=== PATIENT | male | born 1995 | race African-American/Black ===

== ENCOUNTER 2018-08-25 22:10 | Emergency (ER) | payer BC ==
[2018-08-25 22:24] VITALS: BP 103/67; PULSE 60; TEMP 98; BMI 18.8
[2018-08-25] MEDS ORDERED: FAMOTIDINE 20 MG/50 ML IVPB 20 MG/50 ML MG IVPB ONE (23:43)
--- NOTE | 2018-08-25 23:48 | PDOC ---
Attending Attestation - Resident Resident Name: Katelynn Leblanc - ED Attending Attestation I have performed the following: I have examined & evaluated the patient, The case was reviewed & discussed with the resident, I agree w/resident's findings & plan, Exceptions are as noted - HPI HPI: 08/26/18 00:06 22y M no pmhx presents with 2 days of epigastric dicomfort, worse when he lies down. had gone to an ED and was given protonix with releif of sx for a brief period of time. Pain did seem to worsen after eating pizza yesterday. no prior similar pain in the past. pain seems worse when lying down denies any n/v, diarrhea, f/c denies regular use of nsaids, etoh abuse, spicy foods denies any cp, sob, diaphoresis, diarrhea, melena, bpr. +smokes occasional marijuana, no smoking or other recreational drug use - Physicial Exam PE: 08/26/18 02:07 GENERAL: The patient is awake, alert, and fully oriented, Nontoxic - in no acute distress. HEAD: Normocephalic, atraumatic. EYES: extraocular movements intact, sclera anicteric, conjunctiva clear. ENT: Normal voice, Moist mucous membranes. NECK: Normal range of motion, supple LUNGS: Breath sounds equal, clear to auscultation bilaterally. No wheezes, no rhonchi, no rales. HEART: Regular rate and rhythm, normal S1 and S2 without murmur, rub or gallop. ABDOMEN: Mild epigastric tenderness, no rebound or guarding EXTREMITIES: Normal range of motion, no edema. No clubbing or cyanosis. No cords, erythema, or tenderness. NEUROLOGICAL: No facial assymetry, Normal speech, PSYCH: Normal mood, normal affect. SKIN: Warm, Dry, normal turgor, - Medical Decision Making 08/26/18 02:07 The patient's lab work was reviewed it is unremarkable he is feeling improved will discharge patient with supportive care and GI follow -up
--- NOTE | 2018-08-25 23:51 | PDOC ---
History of Present Illness - General Chief Complaint: Pain Stated Complaint: STOMACH PAIN Time Seen by Provider: 08/25/18 23:26 History Source: Patient Exam Limitations: No Limitations - History of Present Illness Initial Comments: 08/25/18 23:48 22 y/o male with no PMH presents to the ED with ongoing epigastric pain. Patient states that the pain started two days ago while he was at rest. He has had similar stomach issues like this in the past. He states that he is not having any associated nausea/vomiting or diarrhea and has been having normal bowel movements as well, his last one being yesterdaty. The pain is worse when he is laying down so he has been trying to sit up as much as possible. He has had no relief from the pain so he came to the ER this morning and was sent home on what he thinks was zantac . He got relief for about one hour with the the zantac and then the pain started up again so he came back to the ER. He denies any recent travel, illnesses or sick contacts. He has never seen a GI doctor in the past. He attributes the pain to possibly being from eating too much dominos - he denies any caffeine use, doesn't consume a lot of spicy foods but does endorse that he tends to lay down after he eats. No recent NSAID use and denies any alcohol use 08/25/18 23:51 Timing/Duration: constant Modifying Factors: worse with: eating Associated Symptoms: denies: chest pain, nausea/vomiting Past History - Travel Traveled outside of the country in the last 30 days: No Close contact w/someone who was outside of country & ill: No - Past Medical History Allergies/Adverse Reactions: Allergies Allergy/AdvReac Type Severity Reaction Status Date / Time No Known Allergies Allergy Verified 08/25/18 22:24 Home Medications: Ambulatory Orders No Home Medications 0 dose .ROUTE UTDICT 06/23/12 COPD: No - Family Disease History Family Disease History: Diabetes: Mother, Heart Disease: Father - Suicide/Smoking/Psychosocial Hx Smoking Status: Yes Smoking History: Never smoked Have you smoked in the past 12 months: No Number of Cigarettes Smoked Daily: 1 Hx Alcohol Use: No Drug/Substance Use Hx: No Substance Use Type: None Review of Systems - Review of Systems Able to Perform ROS?: Yes Is the patient limited Persian proficient: No Constitutional: No: Fever, Loss of Appetite HEENTM: No: Blurred Vision Respiratory: No: Shortness of Breath, Productive cough Cardiac (ROS): No: Chest Pain ABD/GI: Yes: Other (epigastric pain) : No: Burning, Discharge Musculoskeletal: No: Muscle Weakness Neurological: No: Headache, Dizziness *Physical Exam - Vital Signs Last Vital Signs Temp Pulse Resp BP Pulse Ox 98.0 F 60 18 103/67 100 08/25/18 22:21 08/25/18 22:21 08/25/18 22:21 08/25/18 22:21 08/25/18 22:21 - Physical Exam General Appearance: Yes: Nourished Respiratory/Chest: positive: Lungs Clear, Normal Breath Sounds. negative: Chest Tender Cardiovascular: positive: Regular Rhythm, Regular Rate, S1, S2 Gastrointestinal/Abdominal: positive: Normal Bowel Sounds, Tender (epigastric tenderness upon palpation), Guarding Musculoskeletal: negative: CVA Tenderness Neurologic: positive: Fully Oriented, Alert ED Treatment Course - LABORATORY CBC & Chemistry Diagram: 08/26/18 00:08 08/26/18 00:08 Medical Decision Making - Medical Decision Making 08/25/18 23:56 cbc/cmp/lipase tylenol/pepcid U/S 08/26/18 00:10 *DC/Admit/Observation/Transfer Diagnosis at time of Disposition: GERD (gastroesophageal reflux disease), Abdominal pain - Discharge Dispostion Disposition: HOME Condition at time of disposition: Stable - Referrals Referrals: Brett Adkins DO [Staff Physician] - - Patient Instructions Printed Discharge Instructions: DI for Epigastric Pain Additional Instructions: please take the medication pantoprazole 40mg daily we are referring you to a [facility] inspector that we would like you to follow up with in one week if you begin to have worsening abdominal pains, nausea/vomiting please return to the emergency room immediately - Post Discharge Activity - Attestations Physician Attestion: 08/26/18 02:09 Katelynn Leblanc
[2018-08-25] MEDS ORDERED: ACETAMINOPHEN 325 MG TABLET (FP) PO ONE (23:57)
[2018-08-26 00:43] LABS: BASO % 0.6 % (0-2.0); EOS % 1.7 % (0-4.5); HEMATOCRIT 36.1 % (35.4-49); HEMOGLOBIN 12.2 GM/dL (11.7-16.9); LYMPH % 37.7 % (8-40); MCH 25.9 pg (25.7-33.7); MCHC 33.8 g/dl (32.0-35.9); MEAN CELL VOLUME 76.7 fl (80-96); MEAN PLT VOLUME 9.2 fl (7.5-11.1); MONO % 6.9 % (3.8-10.2); NEUT % 53.1 % (42.8-82.8); PLATELET COUNT 156 K/MM3 (134-434); RDW 13.6 % (11.9-15.9); WHITE BLOOD COUNT 7.1 K/mm3 (4.0-10.0)
[2018-08-26 01:04] LABS: ALBUMIN 4.3 g/dl (3.4-5.0); ALK PHOS 51 U/L (45-117); ANION GAP 4 MMOL/L (8-16); BILIRUBIN,TOTAL 0.3 mg/dL (0.2-1); BLOOD UREA NITROGEN 12 mg/dL (7-18); CALCIUM 8.8 mg/dL (8.5-10.1); CHLORIDE 109 mmol/L (98-107); CO2 26 mmol/L (21-32); CREATININE 0.9 mg/dL (0.55-1.3); GLUCOSE,RANDOM 78 mg/dL (74-106); LIPASE 121 U/L (73-393); POTASSIUM 3.9 mmol/L (3.5-5.1); SGOT/AST 25 U/L (15-37); SGPT/ALT 18 U/L (13-61); SODIUM 139 mmol/L (136-145); TOT PROT 7.4 g/dl (6.4-8.2)
[2018-08-26] MEDS ORDERED: ACETAMINOPHEN 325 MG TABLET (FP) ONE (01:09)
[2018-08-26] MEDS ORDERED: FAMOTIDINE 20 MG/50 ML IVPB 20 MG/50 ML MG IVPB ONE (01:10)
== END 2018-08-26 02:31 | disposition home or self-care (01) ==
LOC: JER 22:10
PROC: 3E033GC Introduction of Other Therapeutic Substance into Peripheral Vein, Percutaneous Approach (ICD-10-PCS; principal; 2018-08-25)
DX: K21.9 Gastro-esophageal reflux disease without esophagitis (principal)
CPT/HCPCS: 36415; 76705-TC; 80053; 83690; 85025; 99282-25

== ENCOUNTER 2018-09-20 07:27 | Emergency (ER) | payer BC ==
[2018-09-20 07:40] VITALS: BP 122/88; PULSE 74; TEMP 97.6; BMI 18.1
[2018-09-20] MEDS ORDERED: LIDOCAINE HCL 1%, 10 MG/ML (50 mL VIAL) SQ ONE (07:54)
[2018-09-20] MEDS ORDERED: LIDOCAINE HCL 1%, 10 MG/ML (20ML VIAL) ONE (07:58)
--- NOTE | 2018-09-20 08:19 | PDOC ---
History of Present Illness - General Chief Complaint: Toothache Stated Complaint: PAIN Time Seen by Provider: 09/20/18 07:47 History Source: Patient Exam Limitations: No Limitations - History of Present Illness Initial Comments: 09/20/18 08:09 23M with no PMH who presents with pain between tooth #2-3 for 3-4 days. Pt states that he feels pain throughout the side of his face but denies fever, chills, nausea, vomiting, h/a, changes in vision. He denies pus drainage from his mouth. Past History - Past Medical History Allergies/Adverse Reactions: Allergies Allergy/AdvReac Type Severity Reaction Status Date / Time No Known Allergies Allergy Verified 09/20/18 07:31 Home Medications: Ambulatory Orders No Home Medications 0 dose .ROUTE UTDICT 06/23/12 COPD: No - Family Disease History Family Disease History: Diabetes: Mother, Heart Disease: Father - Suicide/Smoking/Psychosocial Hx Smoking Status: Yes Smoking History: Never smoked Have you smoked in the past 12 months: No Number of Cigarettes Smoked Daily: 1 Hx Alcohol Use: No Drug/Substance Use Hx: No Substance Use Type: None Review of Systems - Review of Systems Able to Perform ROS?: Yes Comments:: 09/20/18 08:12 GENERAL/CONSTITUTIONAL: No fever or chills. No weakness. HEAD, EYES, EARS, NOSE AND THROAT: + for toothache. No change in vision. No ear pain or discharge. No sore throat. CARDIOVASCULAR: No chest pain, palpitations, or lightheadedness. RESPIRATORY: No cough, wheezing, shortness of breath, or hemoptysis. GASTROINTESTINAL: No nausea, vomiting, diarrhea, constipation, or abdominal pain. GENITOURINARY: No dysuria, frequency, hematuria, or change in urination. MUSCULOSKELETAL: No joint or muscle swelling or pain. No neck or back pain. SKIN: No rash or lesions. NEUROLOGIC: No headache, numbness, tingling, focal weakness, loss of consciousness, or change in strength/sensation. Is the patient limited Thai proficient: No *Physical Exam - Vital Signs Last Vital Signs Temp Pulse Resp BP Pulse Ox 97.6 F 74 20 122/88 100 09/20/18 07:34 09/20/18 07:34 09/20/18 07:34 09/20/18 07:34 09/20/18 07:34 - Physical Exam Comments: 09/20/18 08:20 GENERAL: Well developed, well nourished. Awake and alert. In mild distress. HEENT: Normocephalic, atraumatic. Hearing grossly normal. Moist mucous membranes. PERRLA, EOMI. No conjunctival pallor. TTP over 2-3 tooth without erythema or swelling. NECK: Supple. Full ROM. No JVD. SKIN: Warm and dry. Normal capillary refill. No rashes. No jaundice. NEUROLOGICAL: Alert, awake, appropriate. Cranial nerves 2-12 grossly intact. Normal speech. Gait is normal without ataxia. PSYCHIATRIC: Cooperative. Good eye contact. Appropriate mood and affect. Medical Decision Making - Medical Decision Making 09/20/18 08:21 23M who presents with tooth pain, on abx currently but is unsure which one and for how long. Given local anesthesia and will reassess. 09/20/18 09:36 Pt is on day 7/10 of amoxicillin. No signs of infection. Concern for impacted wisdom tooth as pt has been in pain for 2 weeks. Will give dental urgent care referrals. *DC/Admit/Observation/Transfer Diagnosis at time of Disposition: Tooth pain - Discharge Dispostion Disposition: HOME Condition at time of disposition: Stable Decision to Admit order: No - Referrals - Patient Instructions Printed Discharge Instructions: DI for Dental Pain Additional Instructions: Please continue to take your antibiotics as prescribed until they finish. Return to the ER with any fever, chills, nausea, vomiting, or spreading redness in your mouth or on your face. Please follow up with one of these clinics: [facility] Address: [address] [place] [address] [facility] Address: [address] [place] [address] [facility] Address: [address] [facility] [address], [place] [address] - Post Discharge Activity
--- NOTE | 2018-09-20 08:27 | PDOC ---
Attending Attestation - Resident Resident Name: BandarjoeTay - ED Attending Attestation I have performed the following: I have examined & evaluated the patient, The case was reviewed & discussed with the resident, I agree w/resident's findings & plan - HPI HPI: 09/20/18 08:23 23M with no PMH who presents with pain between tooth #2-3 for 3-4 days, associated with right sided facial pain and swelling.. no f/c, no trismus. on amoxicillin x 10 day course per urgent care. 09/20/18 09:42 - Physicial Exam PE: 09/20/18 08:23 mild distress, clutching his face. NCAT, PERRL, EOMI, clear conjunctiva, anicteric, moist mucus membranes, clear oropharynx. Airway patent, normal phonation. Uvula midline. No sinus tenderness , +right facial tenderness but no overt swelling or erythema. no floor of mouth tenderness or fluctuance. +right sided molar teeth TTP, #2-3, no fluctuance, no erythema or purulence, teeth are tender to percussion. neck supple, FROM no respiratory distress. WWP, no edema. - Medical Decision Making 09/20/18 08:24 History of physical examination as documented Vital signs reviewed, within normal limits, no fever or systemic symptoms. Nontoxic-appearing, airway intact, breathing comfortably. Right-sided upper maxilla early molar teeth affected, #2-3, will perform a dental block of greater sphenopalatine and supraorbital block for dental analgesia. pt amenable to dental block, analgesia and reassessment in addition to PO analgesia outpatient dental followup, continue amoxicillin abx as instructed. 09/20/18 09:43
[2018-09-20] MEDS ORDERED: ACETAMINOPHEN 325 MG TABLET (FP) PO ONE (08:28)
[2018-09-20] MEDS ORDERED: ACETAMINOPHEN 325 MG TABLET (FP) ONE (08:29)
[2018-09-20] MEDS ORDERED: IBUPROFEN 600 MG TABLET (FP) PO ONE ×2 (08:40→08:48)
[2018-09-20] MEDS ORDERED: BUPIVACAINE HCL 0.5% 250 MG/50 ML VIAL IJ ONE (09:26)
[2018-09-20] MEDS ORDERED: BUPIVACAINE HCL/PF 0.5% (5MG/ML) 10 ML VIAL ONE (09:27)
== END 2018-09-20 09:44 | disposition home or self-care (01) ==
LOC: JER 07:27
PROC: 3E023GC Introduction of Other Therapeutic Substance into Muscle, Percutaneous Approach (ICD-10-PCS; principal; 2018-09-20)
DX: K08.89 Other specified disorders of teeth and supporting structures (principal)
CPT/HCPCS: 99282-25

== ENCOUNTER 2022-12-17 09:54 | Emergency (ER) | payer BC, OTHER ==
[2022-12-17 10:09] VITALS: RESP 16; TEMP 97.6; BMI 18.8
[2022-12-17 10:38] LABS: HEMATOCRIT 42.7 % (35.4-49); HEMOGLOBIN 14.1 G/dL (11.7-16.9); MCH 25.5 pg (25.7-33.7); MCHC 32.9 g/dl (32.0-35.9); MEAN CELL VOLUME 77.5 fl (80-96); MEAN PLT VOLUME 8.8 fl (7.5-11.1); PLATELET COUNT 156.1 10^3/uL (134-434); RBC 5.51 10^6/uL (4.00-5.60); RDW 16.4 % (11.9-15.9); WHITE BLOOD COUNT 8.6 10^3/uL (4.0-10.8)
[2022-12-17 11:02] LABS: ALBUMIN 5.3 g/dl (3.4-5.0); BILIRUBIN,TOTAL 0.9 mg/dl (0.2-1); BLOOD UREA NITROGEN 10.7 mg/dl (7-18); CALCIUM 10.1 mg/dl (8.5-10.1); CREATININE 1.2 mg/dl (0.6-1.3); MAGNESIUM 2.2 mg/dL (1.8-2.4); POTASSIUM 4.2 mmol/L (3.5-5.1); SGOT/AST 20.9 U/L (15-37); SGPT/ALT 14.5 U/L (7-52)
[2022-12-17 12:10] VITALS: BP 134/76; PULSE 56
== END 2022-12-17 13:20 | disposition home or self-care (01) ==
LOC: FER 09:54
DX: R07.1 Chest pain on breathing (principal); I44.1 Atrioventricular block, second degree; R94.31 Abnormal electrocardiogram [ECG] [EKG]
CPT/HCPCS: 36415; 71045-TC-FY; 80053; 83735; 84443; 84484; 85027; 86618; 93005; 99285-25

== ENCOUNTER 2023-12-30 13:05 | Emergency (ER) | payer OTHER ==
[2023-12-30 13:38] VITALS: BP 107/71; PULSE 73; RESP 17; TEMP 97.1; BMI 20.2
[2023-12-30] MEDS ORDERED: LIDOCAINE 4% PATCH TP ONE (14:17)
[2023-12-30] MEDS ORDERED: IBUPROFEN 400 MG TABLET (FP) PO ONE (14:18)
[2023-12-30] MEDS: LIDOCAINE 4% PATCH TP ONE (14:20)
[2023-12-30] MEDS: IBUPROFEN 400 MG TABLET (FP) PO ONE (14:20)
[2023-12-30] MEDS ORDERED: LIDOCAINE PATCH REMOVAL MC SCH (22:00)
== END 2023-12-30 15:53 | disposition home or self-care (01) ==
LOC: JERFT 13:05
DX: M54.9 Dorsalgia, unspecified (principal); R07.89 Other chest pain; M79.645 Pain in left finger(s); V43.52XA Car driver injured in collision with other type car in traffic accident, initial encounter; Y92.410 Unspecified street and highway as the place of occurrence of the external cause
CPT/HCPCS: 73130-TC-LT-FY; 99283-25

== ENCOUNTER 2024-06-09 16:46 | Emergency (ER) | payer OTHER ==
[2024-06-09 17:07] VITALS: BP 121/77; PULSE 92; RESP 18; TEMP 98.9; BMI 18.3
[2024-06-09] MEDS: SODIUM CHLORIDE 0.9% 500 ML INFUS.BAG IV ONE (17:27)
[2024-06-09] MEDS: ACETAMINOPHEN 1000 MG/100 ML BAG IVPB ONE (17:27)
[2024-06-09] MEDS ORDERED: ACETAMINOPHEN INJECTION 100 ML ONE (17:27)
[2024-06-09 17:52] LABS: HEMATOCRIT 40.8 % (35.4-49); HEMOGLOBIN 13.5 G/dL (11.7-16.9); MCH 26.1 pg (25.7-33.7); MEAN CELL VOLUME 79.1 fl (80-96); PLATELET COUNT 167.7 10^3/uL (134-434); RBC 5.16 10^6/uL (4.00-5.60); RDW 15.6 % (11.9-15.9); WHITE BLOOD COUNT 16.2 10^3/uL (4.0-10.8)
[2024-06-09 18:03] LABS: ALBUMIN 5.4 g/dl (3.4-5.0); BILIRUBIN,TOTAL 0.7 mg/dl (0.2-1); CREATININE 1.6 mg/dl (0.6-1.3); POTASSIUM 4.1 mmol/L (3.5-5.1); TOT PROT 8.1 g/dl (6.4-8.2)
[2024-06-09 18:04] LABS: INR 1.02 (0.83-1.09); PROTHROMBIN TIME (PATIENT) 11.6 SEC (9.7-13.0)
[2024-06-09 18:07] LABS: ACTIVATED PTT 22.8 SECONDS (25.2-36.5)
[2024-06-09 18:15] LABS: PLATELET ESTIMATE ADEQUATE
[2024-06-09] MEDS: SODIUM CHLORIDE 0.9% 1000 ML INFUS.BAG IV ONE (18:41)
[2024-06-09 22:23] LABS: HIV INTERPRETATION NEGATIVE (NEGATIVE)
== END 2024-06-09 20:59 | disposition home or self-care (01) ==
LOC: FER 16:46
PROC: 3E033NZ Introduction of Analgesics, Hypnotics, Sedatives into Peripheral Vein, Percutaneous Approach (ICD-10-PCS; principal; 2024-06-09)
DX: R55 Syncope and collapse (principal); Z20.822 Contact with and (suspected) exposure to COVID-19
CPT/HCPCS: 0241U-QW; 36415; 70450-TC; 71046-TC-FY; 72125-TC; 80053; 84484; 85027; 85610; 85730; 86803; 87389; 93005; 99285-25; J0131

== ENCOUNTER 2024-09-05 00:51 | Inpatient (IN) | payer OTHER ==
[2024-09-05] MEDS ORDERED: ACETAMINOPHEN INJECTION 100 ML ONE (01:47)
[2024-09-05] MEDS: ACETAMINOPHEN 1000 MG/100 ML BAG IVPB ONE (02:04)
[2024-09-05] MEDS: SODIUM CHLORIDE 1,000 ML IV STA (02:04)
[2024-09-05 02:54] LABS: ABSOLUTE IMMATURE GRANULOCYTES 0.11 x10^3/uL (0.0-0.031); BASOPHILS # 0.02 x10^3/uL (0.01-0.08)
[2024-09-05 02:55] LABS: HEMATOCRIT 41.3 % (40.1-51.0); HEMOGLOBIN 13.3 g/dL (13.7-17.5); MCHC 32.2 g/dl (32.3-36.5); MEAN CELL VOLUME 76.1 fl (79.0-92.2); MEAN PLT VOLUME 10.4 fl (9.4-12.4); MONOCYTE # 1.58 x10^3/uL (0.30-0.82); MONOCYTE % 8.3 % (5.3-12.2); PLATELET COUNT 211 x10^3/uL (163-337); RDW 13.6 % (12.0-15.6)
[2024-09-05 03:13] LABS: CHLORIDE 106 mmol/L (98-107); SODIUM 134 mmol/L (136-145)
[2024-09-05 03:15] LABS: CALCIUM 10.3 mg/dL (8.5-10.1)
[2024-09-05 03:16] LABS: ALBUMIN 4.9 g/dl (3.4-5.0); BLOOD UREA NITROGEN 25.5 mg/dL (7-18); CO2 21 mmol/L (21-32); GLUCOSE,RANDOM 82 mg/dL (74-106); MAGNESIUM 3.3 mg/dL (1.8-2.4)
[2024-09-05 03:19] LABS: CREATININE 3.7 mg/dL (0.55-1.3); SGOT/AST 82 U/L (15-37); SGPT/ALT 18 U/L (13-61)
[2024-09-05 03:20] LABS: BILIRUBIN,TOTAL 0.5 mg/dL (0.2-1)
[2024-09-05 03:21] LABS: TOT PROT 8.5 g/dl (6.4-8.2)
[2024-09-05 03:22] LABS: ALK PHOS 65 U/L (45-117)
[2024-09-05 03:27] LABS: ANION GAP 7 mmol/L (4-13); POTASSIUM 7.2 mmol/L (3.5-5.1)
[2024-09-05] MEDS: SODIUM CHLORIDE 0.9% 500 ML INFUS.BAG IV ONE (04:18)
[2024-09-05] MEDS: LACTATED RINGERS SOLUTION 1000 ML INFUS.BAG IV ONE (04:18)
[2024-09-05 05:05] LABS: POTASSIUM 5.3 mmol/L (3.5-5.1)
[2024-09-05 05:07] LABS: CALCIUM 9.4 mg/dL (8.5-10.1)
[2024-09-05 05:08] LABS: ALBUMIN 4.2 g/dl (3.4-5.0); BLOOD UREA NITROGEN 25.6 mg/dL (7-18)
[2024-09-05 05:11] LABS: CREATININE 3.7 mg/dL (0.55-1.3)
[2024-09-05 05:12] LABS: BILIRUBIN,TOTAL 0.5 mg/dL (0.2-1)
[2024-09-05 06:58] LABS: POTASSIUM 4.4 mmol/L (3.5-5.1)
[2024-09-05 07:00] LABS: CALCIUM 8.5 mg/dL (8.5-10.1)
[2024-09-05 07:01] LABS: ALBUMIN 3.8 g/dl (3.4-5.0); BLOOD UREA NITROGEN 25.3 mg/dL (7-18); MAGNESIUM 2.6 mg/dL (1.8-2.4)
[2024-09-05 07:04] LABS: CREATININE 3.5 mg/dL (0.55-1.3)
[2024-09-05 07:06] LABS: BILIRUBIN,TOTAL 0.4 mg/dL (0.2-1); TOT PROT 6.1 g/dl (6.4-8.2)
[2024-09-05] MEDS ORDERED: LACTATED RINGERS SOLUTION 1,000 ML/1,000 ML INFUS.BAG IV SCH (08:15)
[2024-09-05] MEDS: LACTATED RINGERS SOLUTION 1,000 ML/1,000 ML INFUS.BAG IV SCH (09:05)
[2024-09-05 09:10] VITALS: RESP 18; BMI 16.7
[2024-09-05] MEDS: HEPARIN NA (PORCINE) 5,000 UNITS/ML 1ML VIAL SQ SCH (14:03)
[2024-09-05 14:29] LABS: EPI CELLS 7 /uL (0-25.1); HYALINE CASTS 2 /uL (0-3.1); URINE APPEARANCE CLEAR; URINE BACTERIA 7 /uL (0-1359); URINE BILIRUBIN NEGATIVE (NEGATIVE); URINE COLOR YELLOW; URINE GLUCOSE (UA) NEGATIVE (NEGATIVE); URINE KETONE TRACE (NEGATIVE); URINE LEUK ESTERASE NEGATIVE (NEGATIVE); URINE NITRITE NEGATIVE (NEGATIVE); URINE PROTEIN 1+ (NEGATIVE); URINE RBC 10 /uL (0-23.9); URINE UROBILINOGEN 0.2 mg/dL (0.2-1.0); URINE WBC 20 /uL (0-25.8)
[2024-09-05 14:45] LABS: COCAINE, UR NEGATIVE (NEGATIVE); METHADONE, UR NEGATIVE (NEGATIVE); OPIATES, URI NEGATIVE (NEGATIVE); URINE AMPHETAMINES NEGATIVE (NEGATIVE); URINE BARBITURATES NEGATIVE (NEGATIVE); URINE BENZODIAZEPINES NEGATIVE (NEGATIVE)
[2024-09-05 14:46] LABS: PHENCYCLIDINE,URINE NEGATIVE (NEGATIVE)
[2024-09-05 15:25] VITALS: BP 117/68; PULSE 77; TEMP 98.1
[2024-09-09 15:06] LABS: C-ANCA <1:20 titer (Neg:<1:20)
== END 2024-09-05 20:27 | disposition left against medical advice (07) | DRG 469 ==
LOC: JER 00:51 → JERBED 04:51 → OBSVTOIN 08:04 → J6S 08:28
PROVIDERS: ADMIT Student in an Organized Health Care Education/Training Program; ATTEND Student in an Organized Health Care Education/Training Program
DX: N17.9 Acute kidney failure, unspecified (principal); R55 Syncope and collapse; D72.829 Elevated white blood cell count, unspecified; F12.90 Cannabis use, unspecified, uncomplicated; M62.82 Rhabdomyolysis; D50.9 Iron deficiency anemia, unspecified; E86.0 Dehydration; R51.9 Headache, unspecified
CPT/HCPCS: 0241U-QW; 36415; 70450-TC; 71045-TC-FY; 76775-TC; 80053; 80307; 81003; 82550; 82553; 82728; 83520; 83540; 83550; 83690; 83735; 85025; 86256; 86705; 86708; 87086; 87350; 87517; 87522; 93005; 93010; 99285-25; G0378; J0131; J1644